=== PATIENT | male | born 1955 | race Caucasian/White ===

== ENCOUNTER 2019-05-07 08:46 | Emergency (ER) | payer SELFPAY ==
--- OUTSIDE RECORDS SUMMARY | 2019-05-07 09:01 | XMS REPORT | Continuity of Care Document ---
:1955 External Reference #:[id number] Author Name Jj Ellison MD Address [address] [place] [address] Care Team Providers Name Role Phone Ankit Baugh M.D. - Family Medicine Care Team Information Finance Administrator Problems Description No Information Available Social History Type Date Description Comments Sex Unknown Tobacco Use Start: Unknown End: Former Cigarette Smoker 1 x 13 yrs, quit age 30 Unknown Pack Daily Tobacco Use Start: Unknown Never Smoked Cigars Tobacco Use Start: Unknown Never Smoked A Pipe Smokeless Tobacco Never Used Smokeless Tobacco ETOH Use Currently occasionally consumes alcohol Tobacco Use Start: Unknown End: Patient is a former Unknown smoker Smoking Status Reviewed: 03/23/19 Patient is a former smoker Allergies, Adverse Reactions, Alerts Description No Known Drug Allergies Medications Active Medications SIG Qnty Indications Ordering Provider Date Fish Oil as directed Unknown 500mg Capsules Glucosamine Unknown 500mg Tablets Ibuprofen 3-4 tabs by mouth Unknown 200mg Tablets as needed for pain Immunizations Description No Information Available Vital Signs Date Vital Result Comment 03/23/2019 3:25pm Weight 218.00 lb Weight 98.885 kg Height 70 inches 5'10" Height in cm's 177.8 cm BMI (Body Mass Index) 31.3 kg/m2 Results Description No Information Available Procedures Date Code Description Status 03/23/2019 00964 Nasal Endoscopy, Diagnostic Completed Medical Devices Description No Information Available Encounters Type Date Location Provider Dx Diagnosis Office Visit 03/23/2019 Steven,Asif Denny J32.9 Chronic sinusitis, 3:15p 05/31/07 MD Terra unspecified Assessments Date Code Description Provider 03/23/2019 J32.9 Chronic sinusitis, unspecified Jj Ellison MD Plan of Treatment No Information Available Functional Status Description No Information Available Mental Status Description No Information Available Referrals Description No Information Available
[2019-05-07 09:05] VITALS: BP 167/96
[2019-05-07] MEDS ORDERED: Ibuprofen TAB* 600 MG PO ONE (09:20)
--- NOTE | 2019-05-07 10:14 | UC ---
Shoulder Pain HPI - HPI Summary HPI Summary: 64-year-old male presents with onset of left shoulder pain. Patient states that he slipped on some ice at work and fell directly onto his left shoulder. Complains of pain to the anterior and lateral aspect of his shoulder. Pain worsens with any type of movement. Notes some mild numbness in his arm and hand. - History of Current Complaint Chief Complaint: UCUpperExtremity Stated Complaint: FELL ON ICE AT WORK Time Seen by Provider: 05/07/19 09:15 Hx Obtained From: Patient Pain Intensity: 10 - Allergies/Home Medications Allergies/Adverse Reactions: Allergies Allergy/AdvReac Type Severity Reaction Status Date / Time No Known Allergies Allergy Verified 05/07/19 08:59 PMH/Surg Hx/FS Hx/Imm Hx Previously Healthy: Yes - Denies significant PMH - Surgical History Surgical History: Yes Surgery Procedure, Year, and Place: broken jaw and orbit repair chronic back and left knee injury - Family History Known Family History: Positive: Non-Contributory - Social History Occupation: Employed Full-time Lives: With Family Alcohol Use: Weekly Substance Use Type: None Smoking Status (MU): Former Smoker Review of Systems All Other Systems Reviewed And Are Negative: Yes Constitutional: Positive: Negative Skin: Negative: Bruising Respiratory: Positive: Negative Cardiovascular: Positive: Negative Gastrointestinal: Positive: Negative Genitourinary: Positive: Negative Motor: Negative: Weakness Neurovascular: Negative: Decreased Sensation Musculoskeletal: Positive: Decreased ROM, Other: - See HPI Neurological: Negative: Headache, Weakness, Paresthesia, Numbness Is Patient Immunocompromised?: No Physical Exam - Summary Physical Exam Summary: GENERAL APPEARANCE: Well developed, well nourished, alert and cooperative, and appears to be in no acute distress. HEAD: Atraumatic. Normocephalic. NECK: Neck supple, non-tender. Full painless ROM. CARDIAC: Normal S1 and S2. No S3, S4 or murmurs. Rhythm is regular. There is no peripheral edema, cyanosis or pallor. Extremities are warm and well perfused. Capillary refill is less than 2 seconds. Peripheral pulses intact. LUNGS: Clear to auscultation without rales, rhonchi, wheezing or diminished breath sounds. ABDOMEN: Positive bowel sounds. Soft, nondistended, nontender. No guarding or rebound. No masses or hepatosplenomegally. MUSKULOSKELETAL: Normal muscular development. Normal gait. BACK: No spinal deformity or tenderness, decreased range of motion or muscular spasm. EXTREMITIES: Tenderness over the AC joint without gross deformity or ecchymosis. ROM limited due to pain. Circulation, strength, and sensation intact. SKIN: Skin normal color, texture and turgor with no lesions or eruptions. Triage Information Reviewed: Yes Vital Signs: Initial Vital Signs Temp 98.7 F 05/07/19 08:54 Pulse 81 05/07/19 08:54 Resp 18 05/07/19 08:54 BP 167/96 05/07/19 08:54 Pulse Ox 99 05/07/19 08:54 Vital Signs Reviewed: Yes Diagnostics - Radiology No standard instances Radiology Interpretation Completed By: Radiologist Summary of Radiographic Findings: Order Information: SHOULDER LEFT 2+ VWS. INDICATION: Left shoulder injury. TECHNIQUE: 4 views of the left shoulder were obtained. FINDINGS: The soft tissues are unremarkable. The bone mineralization is within normal limits. No fracture is identified. Anatomic alignment is maintained. The joint spaces are preserved. IMPRESSION: NO FRACTURE IS IDENTIFIED. Shoulder Course/Dx - Course Course Of Treatment: 64-year-old male presents with onset of left shoulder pain. Patient states that he slipped on some ice at work and fell directly onto his left shoulder. Complains of pain to the anterior and lateral aspect of his shoulder. Pain worsens with any type of movement. Notes some mild numbness in his arm and hand. Afebrile. Hypertensive otherwise vital signs stable. Patient had tenderness over the AC joint of the left shoulder without gross deformity or ecchymosis, ROM limited due to pain, circulation and sensation intact, and otherwise unremarkable exam. X-ray of the shoulder showed no acute fracture or dislocation. Reviewed results with the patient. Recommending conservative treatment for a right shoulder injury including [id number] analgesics and RICE. Patient was placed in a arm sling by the RN. I did stress that he would need to remove his arm from the sling every 1-2 hours while awake to perform gentle range of motion exercises which were demonstrated to him. He is to follow-up with orthopedic surgery in 3-5 days. Anticipatory guidance and warning symptoms were reviewed with the patient. Verbalizes understanding and agrees with plan of care. - Differential Dx/Diagnosis Differential Diagnosis/HQI/PQRI: Contusion, Dislocation, Fracture (Closed), Rotator Cuff Injury, Sprain Provider Diagnosis: Injury of left shoulder Discharge ED - Sign-Out/Discharge Documenting (check all that apply): Patient Departure All imaging exams completed and their final reports reviewed: Yes - Discharge Plan Condition: Stable Disposition: HOME Patient Education Materials: Shoulder Sprain (ED) Forms: *Work Release Referrals: Ankit Baugh MD [Primary Care Provider] - Mj Restrepo MD [Medical Doctor] - 3 Days (Follow up in 3-5 days for re- evaluation. Call Wednesday for appointment.) Additional Instructions: The x-ray performed in the clinic today showed no evidence of a fracture. Rest the shoulder as much as possible. Avoid heavy lifting and any activity that causes pain. Wear the sling that was provided to you for support. It is important that you remove your arm from the sling every 1-2 hours while awake and perform the range of motion exercises that were demonstrated to you. Apply ice to the affected area for 15-20 minutes at least 4 times a day to help with the pain and swelling. Take acetaminophen (Tylenol) or ibuprofen (Advil, Motrin) according to directions as needed for pain. Follow up with orthopedic surgery in 3-5 days especially if symptoms do not improve. Call Wednesday morning for an appointment. Seek immediate medical attention if you have severe pain not managed with pain medication, he lose function of the arm, develop worsening numbness or tingling in the arm, hand, or fingers, or have any worsening of symptoms. - Billing Disposition and Condition Condition: STABLE Disposition: Home
== END 2019-05-07 10:23 | disposition home or self-care (01) ==
LOC: UCEAST 08:46
DX: S49.92XA Unspecified injury of left shoulder and upper arm, initial encounter (principal); Z87.891 Personal history of nicotine dependence; W00.9XXA Unspecified fall due to ice and snow, initial encounter; Y92.9 Unspecified place or not applicable
CPT/HCPCS: 99213; A9270-GY; G0463